=== PATIENT | male | born 1945 | race Caucasian/White ===

== ENCOUNTER → 2023-01-28 09:15 | Outpatient (BNVA) | payer OTHER, SELFPAY | PROVIDERS: Visit Provider Psychiatry & Neurology Neurology | DX: G20 Parkinson's disease (principal); H61.20 Impacted cerumen, unspecified ear; I10 Essential (primary) hypertension; K46.9 Unspecified abdominal hernia without obstruction or gangrene; R26.89 Other abnormalities of gait and mobility; Z87.898 Personal history of other specified conditions; R20.8 Other disturbances of skin sensation | CPT/HCPCS: 99203 ==

== ENCOUNTER → 2023-01-28 09:15 | Outpatient (BNVA) | payer OTHER, SELFPAY | PROVIDERS: Visit Provider Psychiatry & Neurology Neurology | DX: Z00.00 Encounter for general adult medical examination without abnormal findings (principal); H61.20 Impacted cerumen, unspecified ear; G20 Parkinson's disease; E55.9 Vitamin D deficiency, unspecified; E03.9 Hypothyroidism, unspecified; G45.1 Carotid artery syndrome (hemispheric); I10 Essential (primary) hypertension; K46.9 Unspecified abdominal hernia without obstruction or gangrene; R29.818 Other symptoms and signs involving the nervous system | CPT/HCPCS: 36415; 82306; 82565; 82607; 82746; 83735; 83921; 84155; 84165; 84439; 84443; 84481; 85025; 86334; 86592; 86617; 86780 ==

== ENCOUNTER 2023-02-11 10:34 | Outpatient (CLI) | payer OTHER, SELFPAY ==
--- NOTE | 2023-02-11 | CT_ITS ---
WS: [id number] CT CERVICAL SPINE HISTORY: PARKINSON TECHNIQUE: Contiguous 2.0 mm axial imaging performed through the entire cervical spine. Sagittal and coronal reformats also performed. All CT scans at [facility] use at least one of these dose o ptimization techniques: automated exposure control; mA and/or kV adjustment per patient size (include s targeted exams where dose is matched to clinical indication); or iterative reconstruction. DLP: 159.17 mGy.cm COMPARISON: None available. Normal cervical alignment. Craniocervical junction, atlantodental interval and C1-C2 alignment is nor mal. No cervical spine fracture. Mild disc space narrowing at C5-6 and C6-7. Lateral masses of C1 and C2 a re aligned. Odontoid is intact. Craniocervical junction is normal. C2-C3: Tiny central disc protrusion without cord contact. C3-C4: Bilateral facet arthritis, RIGHT greater than LEFT. C4-C5: Bilateral facet arthritis. Moderate on the LEFT with mild RIGHT foraminal narrowing. C5-C6: Osteophytic ridging encroaching upon the ventral thecal sac and narrowing the subarticular rec esses and foramina. Mild central with moderate bilateral foraminal stenosis. C6-C7: Osteophytic ridging. Mild facet arthritis. Moderate bilateral foraminal stenosis. C7-T1: Normal. Soft tissues are normal. Lung apices are clear. CT/CT cervical spin wo con* [id number] IMPRESSION: 1. No acute cervical spine fracture. 2. Moderate LEFT foraminal stenosis at C4-5 and mild on the RIGHT. 3. Moderate bilateral foraminal stenosis and mild central stenosis at C5-6 pre dominantly due to osteophyte ridging and facet arthritis. 4. Moderate bilateral foraminal stenosis at C6-7.
--- NOTE | 2023-02-11 14:00 | USCV_ITS ---
Camron Qureshi Age: 77 Gender: M : 1945 Exam Date: 02/11/2023 13:54 Ordering Phys: Chong Guzman MD Technologist: Gary Ramirez [place] [facility] [place]: carotid artery syndrome Risk Factors: Previous Vascular Surgery: Right Brachial BP: / Left Brachial BP: / Right Left Velocity (cm/s) Spectral Plaque Velocity (cm/s) Spectral Plaque Syst/Diast Broadening Syst/Diast Broadening 104.70/16.50 Prox CCA 82.60 / 15.40 50.50/ 14.80 Mid CCA 49.70 / 11.70 42.30/ 12.00 Distal CCA 38.50 / 11.50 103.40/34.20 Prox ICA 51.30 / 18.20 68.40/ 14.00 Mid ICA 76.90 / 23.30 51.80/ 20.60 Distal ICA 94.00 / 35.70 73.10 ECA 90.60 1.35 ICA/CCA 1.55 Antegrade Vertebral Antegrade 33.90/ 10.20 cm/s 38.00/ 6.80 cm/s Tri Subclavian Tri 78.80 100.8 0 FINDINGS Comparison: none available. No significant elevation of systolic or diastolic velocities. Waveforms are normal. Diffuse, mild bilateral scattered calcified plaque and intimal thickening throughout the common carotid arteries and extending through the bifurcation. Antegrade vertebral arteries. CONCLUSIONS Bilateral ICA stenosis less than 50%. Dr. Em Damian DO (Electronically Signed) Final Date: 11 February 2023 14:38 S
--- NOTE | 2023-02-11 14:30 | USCV_ITS ---
Titus Camron Age: 77 Gender: M : 1945 Exam Date: 02/11/2023 13:28 Ordering Phys: Chong Guzman MD Technologist: Gary Ramirez [place] [facility] [place]: essential hypertension BP: 166 / 108 HR: 99 Rhythm: Sinus Technical Quality: Adequate MEASUREMENTS (Male / Female) Normal Values 2D ECHO LV Ejection Fraction MOD 2C 67.8 % LV Ejection Fraction 2C AL 67.3 % LA Diameter 3.8 cm LA Width 2.7 cm LA Height 4.9 cm RA Width 3.0 cm RA Height 4.1 cm Aorta at Sinotubular Diameter 3.0 cm M-MODE Aortic Annulus Diameter 3.1 cm LA Ao Ratio MM 1.3 MV E Point Septal Separation 0.7 cm DOPPLER AV Peak Velocity 117.0 cm/s LVOT Peak Velocity 107.0 cm/s MV Peak Velocity 95.0 cm/s MV Area PHT 7.1 cm squared Mitral E to A Ratio 0.5 MV E' Velocity 25.0 cm/s Mitral E to MV E' Ratio 8.2 Mitral E to LV E' Lateral Ratio 8.8 Mitral E to LV E' Septal Ratio 7.8 Right Atrial Pressure 3.0 mmHg PV Peak Velocity 143.7 cm/s RV Acceleration Time 0.1 s RV Ejection Time 0.2 s RV AcT/ET 0.5 FINDINGS Left Ventricle Left ventricle is normal size. LV systolic function is normal with EF of 60 to 65%. No regional wall motion abnormalities are seen. Grade 1 diastolic dysfunction Right Ventricle Normal in size and function Right Atrium Normal in size Left Atrium Normal in size Mitral Valve Structurally normal mitral valve. Mild mitral regurgitation Aortic Valve Structurally normal aortic valve. No significant stenosis or regurgitation. Tricuspid Valve Mild tricuspid regurgitation. Insufficient TR jet to calculate RVSP Pulmonic Valve Not well-visualized Pericardium Normal Aorta Normal in size IVC Appears to be normal CONCLUSIONS LV systolic function is normal with EF of 60 to 65%. Grade 1 diastolic dysfunction Mild mitral regurgitation Mild tricuspid regurgitation No comparison studies are available. Theo Suggs MD (Electronically Signed) Final Date: 16 February 2023 13:19 S
== END 2023-02-11 10:35 | disposition home or self-care (01) ==
LOC: RAD 10:39
PROVIDERS: PCP Obstetrics & Gynecology; Visit Provider Psychiatry & Neurology Neurology
DX: Z00.01 Encounter for general adult medical examination with abnormal findings (principal); G20 Parkinson's disease; G45.1 Carotid artery syndrome (hemispheric); M48.02 Spinal stenosis, cervical region; I10 Essential (primary) hypertension; I34.0 Nonrheumatic mitral (valve) insufficiency; I07.1 Rheumatic tricuspid insufficiency
CPT/HCPCS: 72125; 93306; 93880

== ENCOUNTER → 2023-04-21 13:47 | Outpatient (BNVA) | payer OTHER, SELFPAY | PROVIDERS: PCP Obstetrics & Gynecology; Visit Provider Psychiatry & Neurology Neurology | DX: R29.818 Other symptoms and signs involving the nervous system (principal) | CPT/HCPCS: 99212 ==

== ENCOUNTER → 2023-11-15 13:58 | Outpatient (BNVA) | payer OTHER, MEDICARE, SELFPAY | PROVIDERS: PCP Obstetrics & Gynecology; Visit Provider Psychiatry & Neurology Neurology | DX: R29.818 Other symptoms and signs involving the nervous system (principal) | CPT/HCPCS: 99212 ==

== ENCOUNTER 2023-11-30 14:04 | Outpatient (CLI) | payer OTHER, SELFPAY ==
--- NOTE | 2023-11-30 14:30 | CT_ITS ---
WS: [id number] CT THORACIC SPINE HISTORY: R29.818 - Other symptoms and signs involving the nervous ... TECHNIQUE: Contiguous 2.0 mm axial images are reviewed to thoracic spine. Images are reformatted in s agittal and coronal planes. All CT scans at [facility] use at least one of these dose optimiz ation techniques: automated exposure control; mA and/or kV adjustment per patient size (includes targ eted exams where dose is matched to clinical indication); or iterative reconstruction. DLP: 605.51 mGy.cm COMPARISON: None available. Mild increase in thoracic kyphosis. Mild disc space narrowing throughout the thoracic spine. There is minimal anterior wedging of T9 and T10. No acute fractures are identified. Large bridging clot-like osteophytes in the mid RIGHT lateral thoracic spine. No central stenosis or osseous destruction. No d isc protrusions or significant foraminal stenosis. Centrilobular emphysema with changes of pulmonary fibrosis. Honeycombing at the RIGHT lung base. Pulm onary arteries are prominent suggesting pulmonary hypertension. IMPRESSION: 1. Mild increase in thoracic kyphosis. 2. No thoracic spine fractures or retropulsion of vertebral bodies. 3. Pulmonary fibrosis with honeycombing at the RIGHT lung base. 4. Suspect early changes of pulmonary hypertension.
--- NOTE | 2023-11-30 15:00 | CT_ITS ---
WS: [id number] CT LUMBAR SPINE, noncontrast. HISTORY: Indeterminate unsteady gait. Unable to walk. TECHNIQUE: Contiguous 2.0 mm axial imaging are performed. Sagittal and coronal reformats are submitte d and reviewed. All CT scans at [facility] use at least one of these dose optimization techni ques: automated exposure control; mA and/or kV adjustment per patient size (includes targeted exams w here dose is matched to clinical indication); or iterative reconstruction. IV contrast: None DLP: 654.81 mGy.cm COMPARISON: None available. Moderate increase in the lumbar lordosis. Posterior alignment is otherwise normal. Mild disc space na rrowing and desiccation with vacuum disc phenomenon at L1-2 and L5-S1. No pars defects. No fractures. L1-2: Mild annular disc bulging. No stenosis. L2-3: Mild annular disc bulging with a shallow LEFT foraminal disc protrusion. Mild ligamentum flavum and facet arthritis. Mild central, bilateral subarticular recess and no foraminal stenosis. L3-4: Moderate annular disc bulging encroaching upon the ventral thecal sac. Moderate ligamentum flav um and facet arthritis. Moderate central and bilateral subarticular recess and foraminal stenosis. Mi ld encroachment upon the exiting and traversing nerve roots. L4-5: Diffuse asymmetric disc bulging greatest to the RIGHT. Broad-based RIGHT foraminal and far late ral RIGHT foraminal disc protrusion. Marked facet joint arthritis. Ligamentum flavum hypertrophy. Sev ere central with bilateral subarticular recess and foraminal stenosis. There is significant encroachm ent upon the L4 and L5 nerve roots. L5-S1: Mild osteophytic ridging and annular disc bulging. Large osteophyte in the LEFT foramen with s ignificant contact on the nerve roots and narrowing. No central stenosis. Osteophyte contact on the L EFT S1 nerve root and also the LEFT L5 nerve root. Mild facet joint arthritis. Visualized retroperitoneum is normal. Mild SI joint arthritis. Air in the SI joints. No destructive bone lesions. Mild aneurysmal dilatatio n of the aorta 3.2 cm. Mild perinephric stranding. IMPRESSION: 1. No compression fractures. 2. L4-5: Broad-based RIGHT foraminal and far lateral disc protrusion. Severe central with bilateral subarticular recess and foraminal stenosis. Significant encroachment upon the traversing and exiting nerve roots. Greater contact on the RIGHT L4 and L5 nerve roots. 3. L5-S1: Large LEFT foraminal osteophyte with contact on the LEFT L5 and S1 nerve roots. Severe LEF T foraminal stenosis. 4. L3-4: Moderate central and bilateral subarticular recess and foraminal stenosis due to disc and o steophyte disease. 5. L2-3: Mild central, bilateral subarticular recess and no foraminal stenosis. 6. Small abdominal aortic aneurysm.
== END 2023-11-30 14:05 | disposition home or self-care (01) ==
LOC: RAD 14:05
PROVIDERS: PCP Obstetrics & Gynecology; Visit Provider Psychiatry & Neurology Neurology
DX: R29.818 Other symptoms and signs involving the nervous system (principal); R26.81 Unsteadiness on feet; M48.061 Spinal stenosis, lumbar region without neurogenic claudication; M48.07 Spinal stenosis, lumbosacral region; I71.40 Abdominal aortic aneurysm, without rupture, unspecified
CPT/HCPCS: 72128; 72131

== ENCOUNTER → 2023-12-23 13:11 | Outpatient (BNVA) | payer OTHER, SELFPAY | PROVIDERS: PCP Obstetrics & Gynecology; Referring Provider Psychiatry & Neurology Neurology; Visit Provider Orthopaedic Surgery | DX: M54.50 Low back pain, unspecified (principal); G89.29 Other chronic pain | CPT/HCPCS: 99204 ==

== ENCOUNTER 2024-01-05 14:02 | Outpatient (CLI) | payer OTHER, SELFPAY ==
--- NOTE | 2024-01-05 14:30 | MR_ITS ---
WS: [id number] MRI LUMBAR SPINE NONCONTRAST TECHNIQUE: Sagittal T1, T2 and STIR imaging. Axial T1 and T2 imaging. CLINICAL INFORMATION: M54.9 - Dorsalgia, unspecified COMPARISON: CT 11/30/2023 FINDINGS: Mild lumbar curve. No acute compression. Slight anterolisthesis L4 on L5. L1-L2: Mild annular bulging. Mild facet arthropathy. Spinal canal and foramen are patent. L2-L3: Mild annular bulging. Moderate facet arthropathy. Mild LEFT foraminal narrowing. Slight narrow ing LEFT subarticular recess. L3-L4: Narrowing of the RIGHT subarticular recess. Small RIGHT foraminal protrusion slightly impinges the exiting RIGHT L3 nerve root with mild RIGHT foraminal narrowing. Small LEFT foraminal protrusion with mild LEFT foraminal narrowing. Moderate facet arthropathy. L4-L5: Slight anterolisthesis. Mild disc bulging with moderate central canal stenosis due to disc bul ging with facet arthropathy and ligamentum flavum hypertrophy. Impingement traversing L5 nerve roots bilaterally. Moderate RIGHT and mild LEFT foraminal narrowing. L5-S1: Tiny central protrusion. Moderate facet arthropathy. Moderate LEFT foraminal narrowing. Visualized pelvic bony structures: Normal. Paravertebral soft tissues: Normal. Infrarenal abdominal aortic aneurysm measuring 3.0 x 2.5 cm. MR/MR lumbar spine wo con* [id number] IMPRESSION: 1. Infrarenal abdominal aortic aneurysm measuring 3.0 x 2.5 cm. Recommend fu rther evaluation with ultrasound or CTA. 2. Moderate central canal stenosis L4-5 with grade 1 anterolisthesis. Impingem ent of traversing L5 nerve roots bilaterally. Moderate RIGHT greater than LEFT foraminal narrowing at this level. 3. Narrowing of the RIGHT L3-4 subarticular recess with mild RIGHT greater mary alice n LEFT foraminal narrowing with small foraminal protrusions. 4. Moderate facet arthropathy L4-L5 and L5-S1. 5. Moderate LEFT L5-S1 foraminal narrowing.
== END 2024-01-05 14:03 | disposition home or self-care (01) ==
LOC: RAD 14:02
PROVIDERS: PCP Obstetrics & Gynecology; Visit Provider Orthopaedic Surgery
DX: M54.16 Radiculopathy, lumbar region (principal); I71.43 Infrarenal abdominal aortic aneurysm, without rupture; M48.061 Spinal stenosis, lumbar region without neurogenic claudication; M43.16 Spondylolisthesis, lumbar region; M99.63 Osseous and subluxation stenosis of intervertebral foramina of lumbar region; M47.896 Other spondylosis, lumbar region; M47.898 Other spondylosis, sacral and sacrococcygeal region; M99.64 Osseous and subluxation stenosis of intervertebral foramina of sacral region
CPT/HCPCS: 72148

== ENCOUNTER → 2024-01-11 12:59 | Outpatient (BNVA) | payer OTHER, SELFPAY | PROVIDERS: PCP Obstetrics & Gynecology; Visit Provider Orthopaedic Surgery | DX: M54.9 Dorsalgia, unspecified (principal); M48.062 Spinal stenosis, lumbar region with neurogenic claudication | CPT/HCPCS: 99214 ==

== ENCOUNTER → 2024-03-20 13:46 | Outpatient (BNVA) | payer OTHER, SELFPAY | PROVIDERS: PCP Obstetrics & Gynecology; Visit Provider Psychiatry & Neurology Neurology | DX: R29.818 Other symptoms and signs involving the nervous system (principal) | CPT/HCPCS: 99212 ==